=== PATIENT | male | born 1940 | race Caucasian/White ===

== ENCOUNTER 2016-12-03 22:32 | Inpatient (IN) | payer MEDICARE ==
[~2016-12-03] VITALS: Ht 165.1 cm; Wt 65.3 kg
[2016-12-03] MEDS ORDERED: MAGNESIUM HYDROXIDE 30 ML UDC PO PRN (23:00)
[2016-12-03] MEDS ORDERED: POTA10CA43 PO (23:38)
[2016-12-03] MEDS ORDERED: ATOR20TA PO (23:38)
[2016-12-03] MEDS ORDERED: ASPI325T2 PO (23:38)
[2016-12-03] MEDS ORDERED: FURO20TA4 PO (23:38)
[2016-12-03] MEDS ORDERED: [UNRECOGNIZED DRUG - CODE] SUBCUT (23:38)
[2016-12-03] MEDS ORDERED: ISOS10TA2 PO (23:38)
[2016-12-03] MEDS ORDERED: AMIO200T2 PO (23:38)
[2016-12-03] MEDS ORDERED: HYDR-4075 PO (23:38)
[2016-12-03] MEDS ORDERED: FERR-58 PO (23:38)
[2016-12-03] MEDS ORDERED: QUET50TA76 PO (23:38)
[2016-12-03] MEDS ORDERED: DIVA125C5 PO (23:38)
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
[2016-12-04 06:47] LABS: BASOPHILS % (AUTO) 0.7 % (0.0-2.0); EOSINOPHILS # (AUTO) 0.1 /CMM (0.0-0.7); EOSINOPHILS % (AUTO) 2.9 % (0.0-6.0); HEMATOCRIT 32 % (39-51); HEMOGLOBIN 10.5 g/dL (13.5-17.5); LYMPHOCYTES # (AUTO) 0.8 /CMM (0.8-4.8); LYMPHOCYTES % (AUTO) 16.7 % (20.0-44.0); MEAN CORPUSCULAR HEMOGLOBIN 29 PG (26.0-33.0); MEAN CORPUSCULAR HGB CONC 33 g/dl (31.0-36.0); MEAN CORPUSCULAR VOLUME 88 fL (80-96); MONOCYTES # (AUTO) 0.6 /CMM (0.1-1.30); NEUTROPHILS # (AUTO) 3.4 /CMM (1.8-8.9); NEUTROPHILS % (AUTO) 68.7 % (43.0-81.0); PLATELET COUNT (AUTO) 171 /CMM (150-450); RDW COEFFICIENT OF VARIATION 15.9 (11.5-15.0); RED BLOOD CELL COUNT(AUTO) 3.59 MIL/uL (4.5-6.0)
[2016-12-04 07:14] LABS: ALBUMIN 3.4 g/dL (3.4-5.0); BILIRUBIN,TOTAL 1.3 mg/dL (0.2-1.0); CALCIUM, SERUM 8.9 mg/dL (8.5-10.1); CREATININE 1.5 mg/dL (0.6-1.3); POTASSIUM 4.5 mmol/L (3.5-5.1); TOTAL PROTEIN, SERUM 7.3 g/dL (6.4-8.2)
[2016-12-04 08:45] VITALS: BP 143/74
[2016-12-04] MEDS ORDERED: ASPIRIN 325 MG TABLET PO SCH (09:00)
[2016-12-04] MEDS ORDERED: FUROSEMIDE 20 MG TABLET PO SCH (09:00)
[2016-12-04] MEDS ORDERED: DIVALPROEX SODIUM 125 MG CAP.SPRINK PO SCH (09:00)
[2016-12-04] MEDS ORDERED: POTASSIUM CHLORIDE 10 MEQ TABLET.SA PO SCH (09:00)
--- NOTE | 2016-12-04 09:39 | NUR ---
GPS/RN DR PERKINS SEEN THE PT WITH NEW ORDERS GIVEN AND CARRIED OUT
[2016-12-04] MEDS: FERROUS SULFATE (325 MG) 325 MG/TAB TABLET PO SCH ×2 (10:00→16:29)
[2016-12-04] MEDS: hydrALAZINE HCL 10 MG TABLET PO SCH ×2 (10:01→16:30)
[2016-12-04] MEDS: ISOSORBIDE DINITRATE (10MG) 10 MG TABLET PO SCH ×2 (10:01→16:30)
[2016-12-04] MEDS: AMIODARONE HCL 200 MG TABLET PO SCH ×2 (10:02→16:29)
[2016-12-04] MEDS: ASPIRIN 81 MG TAB.CHEW PO SCH ×2 (10:10→11:51)
[2016-12-04 10:40] LABS: IRON, SERUM 36 ug/dl (50-175); TOTAL IRON BINDING CAPACITY 204 ug/dl (250-450)
[2016-12-04] MEDS ORDERED: HEPARIN SODIUM, PORCINE 5000 UNITS/1 ML VIAL SQ SCH (13:00)
[2016-12-04] MEDS: DIVALPROEX SODIUM 250 MG TABLET.DR PO SCH ×2 (14:01→16:29)
[2016-12-04] MEDS: QUETIAPINE FUMARATE 25 MG TABLET PO SCH (16:29)
[2016-12-04 16:31] VITALS: BP 126/74
--- NOTE | 2016-12-04 18:24 | NUR ---
GPS/RN NO BM THROUGH THE SHIFT WILL ENDORSE TO NUTRITION MANAGER TO COLLECT SPECIMEN
[2016-12-04 20:04] VITALS: BP 102/69
[2016-12-04] MEDS: ATORVASTATIN 10 MG TABLET PO SCH (21:46)
[2016-12-04] MEDS: TEMAZEPAM 7.5 MG CAPSULE PO PRN (22:43)
[2016-12-05 06:45] LABS: BASOPHILS % (AUTO) 0.6 % (0.0-2.0); EOSINOPHILS # (AUTO) 0.2 /CMM (0.0-0.7); EOSINOPHILS % (AUTO) 4.6 % (0.0-6.0); HEMATOCRIT 33 % (39-51); HEMOGLOBIN 10.9 g/dL (13.5-17.5); LYMPHOCYTES # (AUTO) 1.2 /CMM (0.8-4.8); LYMPHOCYTES % (AUTO) 24.2 % (20.0-44.0); MEAN CORPUSCULAR HEMOGLOBIN 29 PG (26.0-33.0); MEAN CORPUSCULAR HGB CONC 33 g/dl (31.0-36.0); MEAN CORPUSCULAR VOLUME 88 fL (80-96); MONOCYTES # (AUTO) 0.5 /CMM (0.1-1.30); MONOCYTES % (AUTO) 10.8 % (2.0-12.0); NEUTROPHILS # (AUTO) 2.9 /CMM (1.8-8.9); NEUTROPHILS % (AUTO) 59.8 % (43.0-81.0); PLATELET COUNT (AUTO) 174 /CMM (150-450); RDW COEFFICIENT OF VARIATION 16.1 (11.5-15.0); RED BLOOD CELL COUNT(AUTO) 3.76 MIL/uL (4.5-6.0); WHITE BLOOD COUNT (AUTO) 4.9 K/uL (4.3-11.0)
[2016-12-05 07:11] LABS: CALCIUM, SERUM 9.2 mg/dL (8.5-10.1); CREATININE 1.7 mg/dL (0.6-1.3); POTASSIUM 4.7 mmol/L (3.5-5.1)
[2016-12-05 08:00] VITALS: BP 135/86
[2016-12-05] MEDS: ISOSORBIDE DINITRATE (10MG) 10 MG TABLET PO SCH ×2 (08:58→17:06)
[2016-12-05] MEDS: AMIODARONE HCL 200 MG TABLET PO SCH ×2 (08:59→17:07)
[2016-12-05] MEDS: hydrALAZINE HCL 10 MG TABLET PO SCH ×2 (08:59→17:07)
[2016-12-05] MEDS: ASPIRIN 81 MG TAB.CHEW PO SCH (08:59)
[2016-12-05] MEDS: QUETIAPINE FUMARATE 25 MG TABLET PO SCH ×2 (08:59→17:08)
[2016-12-05] MEDS: FERROUS SULFATE (325 MG) 325 MG/TAB TABLET PO SCH ×2 (08:59→17:07)
[2016-12-05] MEDS: DIVALPROEX SODIUM 250 MG TABLET.DR PO SCH ×2 (09:00→17:16)
--- NOTE | 2016-12-05 11:27 | NUR ---
PT C/O CONSTIPATION MOM 30 ML PO PRN GIVEN , WILL CONTINUE TO MONITOR FOR EFFECTIVENESS .
[2016-12-05 16:00] VITALS: BP 122/64
[2016-12-05] MEDS: clonazePAM 0.5 MG TABLET PO PRN (17:40)
--- NOTE | 2016-12-05 17:54 | NUR ---
GPS RN: PATIENT IS INCREASINGLY ANXIOUS, RESTLESS, HYPERVERBAL, WITH EPISODES OF, CONFUSED, HARD TO REDIRECT. ADMINISTERED CLONAZEPAM 0.5MG PO ORDERED. VS STABLE, CONTINUE TO MONITOR.
--- NOTE | 2016-12-05 18:41 | NUR ---
MOM 30 ML PO PRN EFFECTIVE / COLLECT STOOL SEND TO LAB
[2016-12-05] MEDS: ATORVASTATIN 10 MG TABLET PO SCH (21:48)
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
[2016-12-06] MEDS: MENTHOL/CETYLPYRD (CEPACOL) 1 LOZ LOZENGE PO PRN (00:52)
[2016-12-06] MEDS: clonazePAM 0.5 MG TABLET PO PRN (01:18)
--- NOTE | 2016-12-06 01:19 | NUR ---
PATIENT OBSERVED TO BE ANXIOUS, DELUSIONAL AND TALKING NON-SENSICAL STUFF THIS TIME. KLONOPIN MEDICATION GIVEN ORDERED. THERAPEUTIC COMMUNICATION APPLIED. ENCOURAGED PATIENT TO RELAX, AND VERBALIZE HIS FEELINGS AND CONCERNS THIS TIME. CLOSE MONITORING DONE. Q15 MIN CHECKS CONTINUED.
--- NOTE | 2016-12-06 07:00 | NUR ---
[id number]: NOTICE A DRY AND OLD SKIN TEAR ON RT. ARM AND PICTURE TAKEN. WOUND CONSULT ORDERED. CLEANSE WITHY NORMAL SALINE AND APPLY STIR STIRPS AND LEAVE OPEN TO AIR.
[2016-12-06 08:00] VITALS: BP 145/75
[2016-12-06] MEDS: hydrALAZINE HCL 10 MG TABLET PO SCH ×2 (08:36→17:00)
[2016-12-06] MEDS: ASPIRIN 81 MG TAB.CHEW PO SCH (08:36)
[2016-12-06] MEDS: DIVALPROEX SODIUM 250 MG TABLET.DR PO SCH ×2 (08:37→17:07)
[2016-12-06] MEDS: FERROUS SULFATE (325 MG) 325 MG/TAB TABLET PO SCH ×2 (08:37→17:06)
[2016-12-06] MEDS: ISOSORBIDE DINITRATE (10MG) 10 MG TABLET PO SCH ×2 (08:37→17:00)
[2016-12-06] MEDS: AMIODARONE HCL 200 MG TABLET PO SCH ×2 (08:37→17:00)
[2016-12-06] MEDS: QUETIAPINE FUMARATE 25 MG TABLET PO SCH ×2 (08:38→17:00)
[2016-12-06] MEDS: MAG HYDROX/AL HYDROX/SIMETH 30 ML UDC PO PRN (12:28)
--- NOTE | 2016-12-06 12:30 | NUR ---
[id number]: GAVE MAALOX FOR INDIGESTION UPON PT REQUEST AND WILL CONTINUE TO MONITOR FOR EFFECTIVENESS OF MEDICATION
[2016-12-06 16:00] VITALS: BP 90/60
--- NOTE | 2016-12-06 16:29 | NUR ---
Initial discharge plan: Pt. lives with his , Kajal Alcantara [phone] or [phone] [address] . Pt. wants to return home. SW will follow up with pt's , Kajal to confirm pt's ability to return back home. SW will follow up with MD and will form safe and proper discharge.
--- NOTE | 2016-12-06 16:41 | NUR ---
[id number]: NOTIFIED DR. PERKINS ABOUT SKIN TEAR AND NO NEW ORDERS GIVEN AT THIS TIME.
[2016-12-06 20:15] VITALS: BP 135/88
[2016-12-06] MEDS: ATORVASTATIN 10 MG TABLET PO SCH (21:42)
[2016-12-06] MEDS: TEMAZEPAM 7.5 MG CAPSULE PO PRN (22:26)
[2016-12-07] MEDS: ACETAMINOPHEN 325 MG TABLET PO PRN (04:49)
[2016-12-07 08:00] VITALS: BP 127/73
[2016-12-07] MEDS: ASPIRIN 81 MG TAB.CHEW PO SCH (08:43)
[2016-12-07] MEDS: FERROUS SULFATE (325 MG) 325 MG/TAB TABLET PO SCH ×2 (08:43→16:22)
[2016-12-07] MEDS: QUETIAPINE FUMARATE 25 MG TABLET PO SCH ×2 (08:43→16:22)
[2016-12-07] MEDS: DIVALPROEX SODIUM 250 MG TABLET.DR PO SCH ×2 (08:43→16:22)
[2016-12-07] MEDS: ISOSORBIDE DINITRATE (10MG) 10 MG TABLET PO SCH ×2 (08:44→16:21)
[2016-12-07] MEDS: hydrALAZINE HCL 10 MG TABLET PO SCH ×2 (08:44→16:21)
[2016-12-07] MEDS: AMIODARONE HCL 200 MG TABLET PO SCH ×2 (08:45→16:20)
--- NOTE | 2016-12-07 10:08 | NUR ---
[id number]: NOTIFIED DR. SEPINOZA ABOUT LATERAL TORSO HEMATOMA GETTING BIGGER. PACEMAKER INSERTION DONE BEFORE DECEMBER 01, 2016. PA FOR DR. PERKINS MADE AWARE. NO NEW ORDERS GIVEN AT THIS TIME. PT HAS NO COMPLAIN OF PAIN OR DISCOMFORT. WILL CONTINUE TO MONITOR.
[2016-12-07] MEDS: clonazePAM 0.5 MG TABLET PO PRN (10:09)
--- NOTE | 2016-12-07 10:10 | NUR ---
GPS RN: PATIENT IS INCREASINGLY ANXIOUS, RESTLESS, HYPERVERBAL, WITH EPISODES OF, CONFUSED, HARD TO REDIRECT. ADMINISTERED CLONAZEPAM 0.5MG PO ORDERED. VS STABLE, CONTINUE TO MONITOR.
--- NOTE | 2016-12-07 10:10 | NUR ---
WOUND CARE CONSULT: PT IS AMBULATORY AND CONTINENT. BRUISES AND DRY ABRASIONS NOTED. WILL SEE PRN. Addendum: 12/07/16 at 1011 by MINERVA HILL WNDNU Amended: Links added.
--- NOTE | 2016-12-07 12:00 | NUR ---
[id number]: PT SEEN BY DR. PERKINS.
--- NOTE | 2016-12-07 12:39 | NUR ---
[id number]: PT'S X-RAY DONE. PENDING RESULTS
--- NOTE | 2016-12-07 12:52 | NUR ---
RN-CO: Patient was seen and examined by Dr Duke and aware of the expanding ecchymosis on left torso.
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
[2016-12-07 15:40] LABS: APPEARANCE,URINE CLEAR (CLEAR); BILIRUBIN,URINE NEGATIVE (NEGATIVE); BLOOD, URINE NEGATIVE Ery/uL (NEGATIVE); COLOR,URINE YELLOW (YELLOW); KETONES,URINE NEGATIVE (NEGATIVE); LEUKOCYTE ESTERASE ,URINE NEGATIVE (NEGATIVE); NITRITE, URINE NEGATIVE (NEGATIVE); PH,URINE 7.5 (5.0-8.0); PROTEIN,URINE NEGATIVE (NEGATIVE); UGLUCOSE NEGATIVE (NEGATIVE); UROBILINOGEN,URINE 0.2 EU/dL (0.2)
[2016-12-07 15:55] LABS: CREATININE, URINE 31.1 MG/DL (30.0-125.0); URINE TOTAL PROTEIN 14.1 mg/dL (0-11.9)
[2016-12-07 16:00] VITALS: BP 123/76
[2016-12-07 16:21] LABS: EOSINOPHIL,URINE None Seen
--- NOTE | 2016-12-07 19:21 | NUR ---
GPS RN NOTE, RECEIVED PATIENT AWAKE AND IN BED, NO S/S OR COMPLAINTS OF PAIN AT THIS TIME. PATIENT IS DISPLAYING NO S/S OF APPARENT DISTRESS AT THIS TIME. PATIENT HAS A ONE TO ONE SITTER FOR BEING AGGRESSIVE WITH STAFF. PATIENT BREATHING IS UNLABORED WITH EQUAL RISE AND FALL OF THE CHEST. PATIENT IS ALERT AND ORIENTED X 2 ON ROOM AIR WITH A SPO2 95%. PATIENT COMPLIANT WITH MEDICATIONS, ANXIOUS, DELUSIONAL, COOPERATIVE, CONFUSED AT TIMES, AND NEEDS REORIENTATION. PATIENT DENIES SUICIDE AND HOMICIDAL IDEATIONS AT THIS TIME. PATIENT ASSISTED WITH TURNING AND REPOSITIONING Q2HR AND PRN FOR COMFORT AND CIRCULATION. PATIENT HAS NO NEEDS AT THIS TIME. PATIENT EDUCATED ON THE USE OF THE CALL FLORES. PATIENT BED SIDE RAILS UP X2 FOR SAFETY, BED IS LOCKED AND LOW WILL CONTINUE TO MONITOR AND MAINTAIN SAFETY.
[2016-12-07 20:48] VITALS: BP 128/78
[2016-12-07] MEDS: ATORVASTATIN 10 MG TABLET PO SCH (21:02)
[2016-12-08] MEDS: TEMAZEPAM 7.5 MG CAPSULE PO PRN (00:17)
--- NOTE | 2016-12-08 00:17 | NUR ---
GPS RN NOTE, PATIENT HAS A COMPLAINT OF NOT BEING ABLE TO SLEEP AND WOULD LIKE A SLEEPING AID AT THIS TIME. PATIENT VITAL SIGNS ARE STABLE. GAVE RESTORIL 7.5MG PO HS ORDERED. WILL REASSESS FOR INSOMNIA AND I WILL CONTINUE TO MONITOR THIS PATIENT.
[2016-12-08] MEDS: ACETAMINOPHEN 325 MG TABLET PO PRN ×3 (03:22→21:29)
--- NOTE | 2016-12-08 03:24 | NUR ---
GPS RN NOTE, PATIENT HAS A COMPLAINT OF LOWER BACK PAIN AT 3 OUT 10 ON THE PAIN SCALE AND WOULD LIKE MEDICATION AT THIS TIME. PATIENT VITAL SIGNS ARE STABLE. GAVE TYLENOL 650MG PO Q6HR PRN ORDERED. WILL REASSESS PAIN AND I WILL CONTINUE TO MONITOR THIS PATIENT.
[2016-12-08 08:00] VITALS: BP 117/76
[2016-12-08] MEDS: DIVALPROEX SODIUM 250 MG TABLET.DR PO SCH ×3 (09:00→17:00)
--- NOTE | 2016-12-08 09:45 | NUR ---
GPS/RN PT REFUSED DEPAKOTE FOR 0900. OFFERED X3. DR DE SOUZA MADE AWARE.
[2016-12-08] MEDS: ASPIRIN 81 MG TAB.CHEW PO SCH (09:53)
[2016-12-08] MEDS: QUETIAPINE FUMARATE 25 MG TABLET PO SCH ×2 (09:53→17:00)
[2016-12-08] MEDS: FERROUS SULFATE (325 MG) 325 MG/TAB TABLET PO SCH ×2 (09:53→17:00)
[2016-12-08] MEDS: ISOSORBIDE DINITRATE (10MG) 10 MG TABLET PO SCH ×2 (09:55→17:00)
[2016-12-08] MEDS: AMIODARONE HCL 200 MG TABLET PO SCH ×2 (09:55→17:00)
[2016-12-08] MEDS: hydrALAZINE HCL 10 MG TABLET PO SCH ×2 (10:07→17:00)
--- NOTE | 2016-12-08 11:00 | NUR ---
GPS/RN PT REFUSED BLOOD DRAW.
--- NOTE | 2016-12-08 13:13 | NUR ---
GPS/RN PT REFUSED DEPAKOTE FOR 1300. OFFERED X3. DR DE SOUZA IS AWARE.
--- NOTE | 2016-12-08 15:01 | NUR ---
NISHANT contacted Matt from [facility] [address] [facility] [address] who got pt's information and said will have appropriate department to contact the SW. NISHANT then faxed paperwork in order to transfer pt. to [facility] [phone] phone [phone] and followed up and spoke with Radha who said that they have no bed availability and have had pts. waiting in their ER for days. NISHANT asked about [facility] [phone], and per Radha, it is only outpatient.
[2016-12-08 16:00] VITALS: BP 95/57
--- NOTE | 2016-12-08 17:07 | NUR ---
GPS/RN PT REFUSED 1700 MEDS OFFERED X3. PT REQUESTED TYLENOL ONLY.PT IS PARANOID, FIXATED ON LEAVING " THIS PLACE.
--- NOTE | 2016-12-08 18:09 | NUR ---
GPS/RN GRANDIOSE/PARANOID IDEATION. PT STATES THAT HE WILL BECOME INVISIBLE AND ESCAPE FROM THE UNIT. REFUSED MEDS STILL.
[2016-12-08 20:00] VITALS: BP 113/70
[2016-12-08] MEDS: ATORVASTATIN 10 MG TABLET PO SCH (21:29)
[2016-12-09] MEDS: clonazePAM 0.5 MG TABLET PO PRN (00:51)
[2016-12-09 08:00] VITALS: BP 136/79
--- NOTE | 2016-12-09 08:02 | NUR ---
RN-CO: Patient refused Nicotine Patch.
[2016-12-09] MEDS: hydrALAZINE HCL 10 MG TABLET PO SCH ×3 (08:26→16:36)
[2016-12-09] MEDS: ASPIRIN 81 MG TAB.CHEW PO SCH (08:26)
[2016-12-09] MEDS: DIVALPROEX SODIUM 250 MG TABLET.DR PO SCH ×4 (08:27→16:35)
[2016-12-09] MEDS: QUETIAPINE FUMARATE 25 MG TABLET PO SCH ×3 (08:27→16:35)
[2016-12-09] MEDS: FERROUS SULFATE (325 MG) 325 MG/TAB TABLET PO SCH ×3 (08:27→16:37)
[2016-12-09] MEDS: ISOSORBIDE DINITRATE (10MG) 10 MG TABLET PO SCH ×2 (08:27→16:37)
[2016-12-09] MEDS: AMIODARONE HCL 200 MG TABLET PO SCH ×3 (08:29→16:36)
--- NOTE | 2016-12-09 09:10 | NUR ---
GPS/RN PT REFUSED 0900 MEDS OFFERED X3. PT REQUESTED ISORDIL 10MG ONLY.PT IS PARANOID HYPERVERBAL, EXPLAINED OF BENEFITS OF MEDS STILL REFUSED
--- NOTE | 2016-12-09 14:13 | NUR ---
NISHANT spoke with Kajal Alcantara [phone] or [phone] who was notified of no bed availability but per Kajal, pt's psychiatrist Monique Connell [phone] ext [phone] just told her that they would be able to transfer the patient. SW called and left a voicemail for the psychiatrist to find out more. Dr. Connell called back and left a voicemail with two numbers for NISHANT to call to confirm. One for the block and case maker [phone] and one for Psych emergency [phone] ext [phone]. SW called both numbers, but unable to get a hold of anyone and wasn't able to leave a voicemail. NISHANT called back the transfer unit number [phone] and left a voicemail regarding the possible transfer. Will follow up.
[2016-12-09 16:00] VITALS: BP 127/81
--- NOTE | 2016-12-09 17:50 | NUR ---
GPS/RN PT REFUSED 1700 MEDS OFFERED X3. PT TOOK SEROQUEL / DEPAKOTE ONLY.PT IS PARANOID HYPERVERBAL, EXPLAINED OF BENEFITS OF MEDS STILL REFUSED
--- NOTE | 2016-12-09 17:58 | NUR ---
GPS/RN PT REFUSED LABS, OFFERED X3.PT IS PARANOID HYPERVERBAL, EXPLAINED OF BENEFITS OF LABS STILL REFUSED PT. STATED I DON'T NEEDS ANY LABS
--- NOTE | 2016-12-09 19:10 | NUR ---
GPS RN NOTE, RECEIVED PATIENT AWAKE AND IN BED, NO S/S OR COMPLAINTS OF PAIN AT THIS TIME. PATIENT IS DISPLAYING NO S/S OF APPARENT DISTRESS AT THIS TIME. PATIENT HAS A ONE TO ONE SITTER FOR BEING AGGRESSIVE WITH STAFF. PATIENT BREATHING IS UNLABORED WITH EQUAL RISE AND FALL OF THE CHEST. PATIENT IS ALERT AND ORIENTED X 2 ON ROOM AIR WITH A SPO2 98%. PATIENT COMPLIANT WITH MEDICATIONS, ANXIOUS, DELUSIONAL, COOPERATIVE, CONFUSED AT TIMES, AND NEEDS REORIENTATION. PATIENT DENIES SUICIDE AND HOMICIDAL IDEATIONS AT THIS TIME. PATIENT ASSISTED WITH TURNING AND REPOSITIONING Q2HR AND PRN FOR COMFORT AND CIRCULATION. PATIENT HAS NO NEEDS AT THIS TIME. PATIENT EDUCATED ON THE USE OF THE CALL FLORES. PATIENT BED SIDE RAILS UP X2 FOR SAFETY, BED IS LOCKED AND LOW WILL CONTINUE TO MONITOR AND MAINTAIN SAFETY.
[2016-12-09 20:00] VITALS: BP 111/65
[2016-12-09] MEDS: ATORVASTATIN 10 MG TABLET PO SCH (21:04)
[2016-12-09 21:13] LABS: APPEARANCE,URINE CLEAR (CLEAR); BILIRUBIN,URINE NEGATIVE (NEGATIVE); BLOOD, URINE NEGATIVE Ery/uL (NEGATIVE); COLOR,URINE YELLOW (YELLOW); KETONES,URINE NEGATIVE (NEGATIVE); LEUKOCYTE ESTERASE ,URINE NEGATIVE (NEGATIVE); NITRITE, URINE NEGATIVE (NEGATIVE); PROTEIN,URINE NEGATIVE (NEGATIVE); UGLUCOSE NEGATIVE (NEGATIVE)
[2016-12-09 21:20] LABS: CREATININE, URINE 28.6 MG/DL (30.0-125.0); URINE TOTAL PROTEIN 12.3 mg/dL (0-11.9)
[2016-12-09 21:21] LABS: ADD URINE CULTURE NO; BACTERIA,URINE None seen /HPF (None Seen); RBC,URINE 0-2 /HPF (0-2); SQUAMOUS EPITHELIAL CELL,UR Rare /HPF (None Seen); WBC,URINE 0-2 /HPF (0-3)
[2016-12-09 21:32] LABS: EOSINOPHIL,URINE None Seen
[2016-12-09] MEDS: ACETAMINOPHEN 325 MG TABLET PO PRN (21:35)
--- NOTE | 2016-12-09 21:35 | NUR ---
GPS RN NOTE, PATIENT HAS A COMPLAINT OF LOWER BACK PAIN AT 3 OUT 10 ON THE PAIN SCALE AND WOULD LIKE MEDICATION AT THIS TIME. PATIENT VITAL SIGNS ARE STABLE. GAVE TYLENOL 650 MG PO Q6HR PRN ORDERED. WILL REASSESS FOR PAIN AND I WILL CONTINUE TO MONITOR THIS PATIENT.
[2016-12-10] MEDS: TEMAZEPAM 7.5 MG CAPSULE PO PRN (01:51)
[2016-12-10] MEDS: ACETAMINOPHEN 325 MG TABLET PO PRN (04:40)
[2016-12-10 08:00] VITALS: BP 140/72
[2016-12-10] MEDS: ISOSORBIDE DINITRATE (10MG) 10 MG TABLET PO SCH ×3 (09:00→17:00)
[2016-12-10] MEDS: AMIODARONE HCL 200 MG TABLET PO SCH ×3 (09:00→17:00)
[2016-12-10] MEDS: FERROUS SULFATE (325 MG) 325 MG/TAB TABLET PO SCH ×3 (09:00→17:00)
[2016-12-10] MEDS: hydrALAZINE HCL 10 MG TABLET PO SCH ×3 (09:00→17:00)
[2016-12-10] MEDS: DIVALPROEX SODIUM 250 MG TABLET.DR PO SCH ×3 (10:10→17:57)
[2016-12-10] MEDS: ASPIRIN 81 MG TAB.CHEW PO SCH (10:10)
[2016-12-10] MEDS: QUETIAPINE FUMARATE 25 MG TABLET PO SCH ×3 (10:11→21:15)
[2016-12-10 16:00] VITALS: BP 110/69
[2016-12-10 20:00] VITALS: BP 120/67
[2016-12-10] MEDS: ATORVASTATIN 10 MG TABLET PO SCH (21:15)
[2016-12-11 08:00] VITALS: BP 121/82
[2016-12-11] MEDS: hydrALAZINE HCL 10 MG TABLET PO SCH ×2 (09:00→16:43)
[2016-12-11] MEDS: ISOSORBIDE DINITRATE (10MG) 10 MG TABLET PO SCH ×2 (09:00→16:46)
[2016-12-11] MEDS ORDERED: diphenhydrAMINE HCL ELIX 25 MG/10 ML UDC PO PRN (09:00)
[2016-12-11] MEDS: FERROUS SULFATE (325 MG) 325 MG/TAB TABLET PO SCH ×2 (09:00→16:46)
[2016-12-11] MEDS: AMIODARONE HCL 200 MG TABLET PO SCH ×2 (09:05→16:45)
[2016-12-11] MEDS: QUETIAPINE FUMARATE 25 MG TABLET PO SCH ×3 (09:06→22:00)
[2016-12-11] MEDS: DIVALPROEX SODIUM 250 MG TABLET.DR PO SCH ×4 (09:06→16:46)
[2016-12-11] MEDS: ASPIRIN 81 MG TAB.CHEW PO SCH (09:06)
[2016-12-11 15:47] VITALS: BP 122/72
--- NOTE | 2016-12-11 16:47 | NUR ---
GPS RN NOTE: PATIENT IN THE ROOM REFUSED ALL 1700 MEDICATIONS STATED: IM NOT TAKING ANY MEDICATIONS ,LEAVE " EXPLAIN RISK AND BENEFITS PATIENT CONTINUE REFUSING, PT REFUSED LABS WILL CONTINUE MONITORING MD AWARE NO NEW ORDERS
[2016-12-11 19:54] VITALS: BP 129/69
[2016-12-11] MEDS: ATORVASTATIN 10 MG TABLET PO SCH (21:59)
[2016-12-12] MEDS: ACETAMINOPHEN 325 MG TABLET PO PRN (00:53)
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
[2016-12-12 08:00] VITALS: BP 129/77
[2016-12-12] MEDS: DIVALPROEX SODIUM 250 MG TABLET.DR PO SCH ×4 (09:00→17:25)
[2016-12-12] MEDS: ASPIRIN 81 MG TAB.CHEW PO SCH (09:00)
[2016-12-12] MEDS: AMIODARONE HCL 200 MG TABLET PO SCH ×3 (09:00→17:26)
[2016-12-12] MEDS: QUETIAPINE FUMARATE 25 MG TABLET PO SCH ×2 (09:00→20:40)
[2016-12-12] MEDS: ISOSORBIDE DINITRATE (10MG) 10 MG TABLET PO SCH ×3 (09:00→17:28)
[2016-12-12] MEDS: hydrALAZINE HCL 10 MG TABLET PO SCH ×3 (09:00→17:26)
[2016-12-12] MEDS: FERROUS SULFATE (325 MG) 325 MG/TAB TABLET PO SCH ×3 (09:00→17:26)
--- NOTE | 2016-12-12 11:13 | NUR ---
NISHANT spoke with Monique Connell [phone] ext [phone] and she provided some more contacts that may be able to confirm whether pt. can or cannot be transferred. NISHANT called the transfer business supervisor [phone] and he confirmed that they still do not have a bed available, and in fact, they are trying to send 3 of their patients out to a different hospital due to no bed availability. NISHANT left a voicemail for Kajal Alcantara [phone] or [phone] informing her of the updates and asking to call back to discuss discharge other options.
--- NOTE | 2016-12-12 13:24 | NUR ---
WOUND CARE CONSULT CALLED TO ASSESS RIGHT ARM/ELBOW SKIN TEAR. SEE TODAY'S SKIN ASSESSMENT IN [facility] ALONG WITH RECOMMENDATIONS DISCUSSED WITH NURSING STAFF. IN AGREEMENT WITH PLAN OF CARE. Addendum: 12/12/16 at 1325 by MARY JO PERRIN WNDNU Amended: Links added.
[2016-12-12] MEDS: NEOMY SULF/BACITRAC ZN/POLY 15 GM TUBE TP SCH (13:30)
[2016-12-12 16:00] VITALS: BP 134/80
--- NOTE | 2016-12-12 16:23 | NUR ---
Disregard psychosocial assessment entered 12/12/16 by Nathan Hare. Addendum: 12/12/16 at 1626 by NATHAN HARE SW Amended: Links added.
--- NOTE | 2016-12-12 17:31 | NUR ---
PATIENT REFUSED 0900, 1300, AND 1700 MEDICATION PRESCRIBED, PATIENT STATE" I NEED MY VA DOCTOR, LET MY DOCTOR TALK TO ME", DR DE SOUZA AWARE OF, CONTINUED MONITORING.
[2016-12-12] MEDS: MAG HYDROX/AL HYDROX/SIMETH 30 ML UDC PO PRN (18:15)
--- NOTE | 2016-12-12 18:15 | NUR ---
ADMINISTERED MAALOX 30 MG/ML PO PRN FOR STOMACHACHE, CONTINUED MONITORING.
[2016-12-12 19:40] VITALS: BP 120/81
[2016-12-12] MEDS: ATORVASTATIN 10 MG TABLET PO SCH (20:40)
[2016-12-13] MEDS: ACETAMINOPHEN 325 MG TABLET PO PRN (04:14)
[2016-12-13 08:00] VITALS: BP 143/90
[2016-12-13] MEDS: hydrALAZINE HCL 10 MG TABLET PO SCH ×2 (08:58→17:00)
[2016-12-13] MEDS: ASPIRIN 81 MG TAB.CHEW PO SCH (08:59)
[2016-12-13] MEDS: AMIODARONE HCL 200 MG TABLET PO SCH ×2 (08:59→17:00)
[2016-12-13] MEDS: FERROUS SULFATE (325 MG) 325 MG/TAB TABLET PO SCH ×2 (09:00→17:00)
[2016-12-13] MEDS: NEOMY SULF/BACITRAC ZN/POLY 15 GM TUBE TP SCH (09:00)
[2016-12-13] MEDS: QUETIAPINE FUMARATE 25 MG TABLET PO SCH ×2 (09:00→21:08)
[2016-12-13] MEDS: DIVALPROEX SODIUM 250 MG TABLET.DR PO SCH ×3 (09:00→21:08)
[2016-12-13] MEDS: ISOSORBIDE DINITRATE (10MG) 10 MG TABLET PO SCH ×2 (09:00→17:00)
--- NOTE | 2016-12-13 09:08 | NUR ---
GPS/RN PT REFUSED 0900 AM ALL MEDS OFFERED X3.PT IS PARANOID HYPERVERBAL, EXPLAINED OF BENEFITS OF MEDS pt. STILL REFUSED
--- NOTE | 2016-12-13 09:09 | NUR ---
[id number]: SPOKEN TO PHARMACY AND DEPAPOTE 250 MG PO TID HS BEEN DISCONTINUE BUT IS STILL SHOWING UP IN THE EMAR AND ONLY TO ADMINISTER 250 MG Q12 HOUR.
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
--- NOTE | 2016-12-13 11:30 | NUR ---
Pt. was referred to [facility] [address] [place] [address] . Will follow up
[2016-12-13 15:21] VITALS: BP 134/86
--- NOTE | 2016-12-13 17:10 | NUR ---
GPS/RN PT REFUSED 1700 ALL MEDS OFFERED X3.PT IS PARANOID HYPERVERBAL, EXPLAINED OF BENEFITS OF MEDS pt. STILL REFUSED
[2016-12-13 20:16] VITALS: BP 153/75
[2016-12-13] MEDS: ATORVASTATIN 10 MG TABLET PO SCH (21:08)
[2016-12-14] MEDS: clonazePAM 0.5 MG TABLET PO PRN ×2 (07:10→15:20)
[2016-12-14 08:00] VITALS: BP 147/79
[2016-12-14] MEDS: hydrALAZINE HCL 10 MG TABLET PO SCH ×2 (09:00→17:22)
[2016-12-14] MEDS: AMIODARONE HCL 200 MG TABLET PO SCH ×2 (09:00→17:22)
[2016-12-14] MEDS: ASPIRIN 81 MG TAB.CHEW PO SCH (09:00)
[2016-12-14] MEDS: ISOSORBIDE DINITRATE (10MG) 10 MG TABLET PO SCH ×2 (09:00→17:21)
[2016-12-14] MEDS: FERROUS SULFATE (325 MG) 325 MG/TAB TABLET PO SCH ×2 (09:00→17:22)
[2016-12-14] MEDS: DIVALPROEX SODIUM 250 MG TABLET.DR PO SCH ×2 (09:00→21:34)
[2016-12-14] MEDS: QUETIAPINE FUMARATE 25 MG TABLET PO SCH ×2 (09:00→21:34)
[2016-12-14] MEDS: NEOMY SULF/BACITRAC ZN/POLY 15 GM TUBE TP SCH (11:00)
--- NOTE | 2016-12-14 15:21 | NUR ---
GPS/RN PATIENT AGITATED, ANXIOUS, THROWING WATER IN HALLWAY X 2, NON REDIRECTABLE, ADMINISTERED KLONOPIN DIRECTED, WILL CONTINUE TO MONITOR Q 15 MIN FOR SAFETY AND BEHAVIOR.
[2016-12-14 16:00] VITALS: BP 138/77
[2016-12-14 20:48] VITALS: BP 114/83
[2016-12-14] MEDS: ATORVASTATIN 10 MG TABLET PO SCH (21:34)
[2016-12-15] MEDS: ACETAMINOPHEN 325 MG TABLET PO PRN (02:14)
[2016-12-15] MEDS: FERROUS SULFATE (325 MG) 325 MG/TAB TABLET PO SCH ×2 (08:06→17:33)
[2016-12-15] MEDS: DIVALPROEX SODIUM 250 MG TABLET.DR PO SCH (08:07)
[2016-12-15] MEDS: hydrALAZINE HCL 10 MG TABLET PO SCH ×2 (08:07→17:34)
[2016-12-15] MEDS: ASPIRIN 81 MG TAB.CHEW PO SCH (08:07)
[2016-12-15] MEDS: ISOSORBIDE DINITRATE (10MG) 10 MG TABLET PO SCH ×2 (08:07→17:33)
[2016-12-15] MEDS: QUETIAPINE FUMARATE 25 MG TABLET PO SCH (08:08)
[2016-12-15] MEDS: NEOMY SULF/BACITRAC ZN/POLY 15 GM TUBE TP SCH (08:08)
[2016-12-15] MEDS: AMIODARONE HCL 200 MG TABLET PO SCH ×2 (08:08→17:34)
[2016-12-15 08:16] VITALS: BP 126/81
--- NOTE | 2016-12-15 11:44 | NUR ---
Christina (BARRY) from [facility] [id number] [place] [address] came to assess the patient. They will review the case and confirm whether pt. can be admitted or not.
[2016-12-15 15:51] VITALS: BP 110/68
--- NOTE | 2016-12-15 19:16 | NUR ---
GPS/RN NOTE: PATIENT UP IN THE DINING AREA WITH OTHER PATIENTS. CALM, NO APPARENT DISTRESS NOTED.
[2016-12-15 20:00] VITALS: BP 103/64
[2016-12-15] MEDS ORDERED: OLANZAPINE 10 MG VIAL IM PRN (22:00)
[2016-12-15] MEDS ORDERED: OLANZAPINE 5 MG/TAB.RAPDIS PO SCH (22:00)
[2016-12-15] MEDS: DIVALPROEX SODIUM 125 MG CAP.SPRINK PO SCH (23:37)
[2016-12-15] MEDS: ATORVASTATIN 10 MG TABLET PO SCH (23:38)
--- NOTE | 2016-12-16 05:40 | NUR ---
GPS/RN NOTE: PATIENT C/O ACHY BACK PAIN, TYLENOL 650 MG TAB PO GIVEN. PATIENT IS ALSO C/O ITCHING ON THE PACEMAKER SITE, REDNESS NOTED. PHOTO TAKEN. WILL ENDORSE TO DAY RN FOR FOLLOW UP AND REFER TO MD TODAY.
[2016-12-16] MEDS: ACETAMINOPHEN 325 MG TABLET PO PRN (05:44)
[2016-12-16 08:05] VITALS: BP 124/73
[2016-12-16] MEDS: ISOSORBIDE DINITRATE (10MG) 10 MG TABLET PO SCH ×2 (09:00→17:00)
[2016-12-16] MEDS: NEOMY SULF/BACITRAC ZN/POLY 15 GM TUBE TP SCH (09:00)
[2016-12-16] MEDS: hydrALAZINE HCL 10 MG TABLET PO SCH ×2 (09:00→17:00)
[2016-12-16] MEDS: DIVALPROEX SODIUM 250 MG TABLET.DR PO SCH (09:00)
[2016-12-16] MEDS: ASPIRIN 81 MG TAB.CHEW PO SCH (09:00)
[2016-12-16] MEDS: FERROUS SULFATE (325 MG) 325 MG/TAB TABLET PO SCH ×2 (09:00→17:00)
[2016-12-16] MEDS: AMIODARONE HCL 200 MG TABLET PO SCH ×2 (09:00→17:00)
--- NOTE | 2016-12-16 09:53 | NUR ---
NISHANT faxed a referral to [facility] [address] [place] [address] . Will follow up
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
--- NOTE | 2016-12-16 11:40 | NUR ---
SW spoke with Kajal Alcantara [phone], pt's , who was notified of pt's possible discharge on Monday to [address] [address] as per Almita from the facility pt. is accepted.
[2016-12-16 15:37] VITALS: BP 121/70
[2016-12-16] MEDS ORDERED: OLANZAPINE 10 MG VIAL IM PRN (16:00)
--- NOTE | 2016-12-16 18:40 | NUR ---
GPS/RN pt refufsed po meds for 0900 and 1700 today, offered x3
--- NOTE | 2016-12-16 19:48 | NUR ---
GPS/RN NOTE: PATIENT IS SITTING AT THE DINING AREA, AWAKE, ALERT, CONFUSED. NO APPARENT DISTRESS NOTED.
[2016-12-16 20:00] VITALS: BP_SYST 134; BP_SYST 147; BP_DIAS 71; BP_DIAS 73
[2016-12-16] MEDS: ATORVASTATIN 10 MG TABLET PO SCH ×2 (21:16→21:35)
[2016-12-16] MEDS: DIVALPROEX SODIUM 125 MG CAP.SPRINK PO SCH ×2 (21:16→21:35)
[2016-12-16] MEDS: OLANZAPINE 5 MG/TAB.RAPDIS PO SCH ×2 (21:24→21:35)
[2016-12-17 08:00] VITALS: BP 129/76
[2016-12-17] MEDS: DIVALPROEX SODIUM 250 MG TABLET.DR PO SCH (08:37)
[2016-12-17] MEDS: hydrALAZINE HCL 10 MG TABLET PO SCH ×2 (08:37→17:00)
[2016-12-17] MEDS: AMIODARONE HCL 200 MG TABLET PO SCH ×2 (08:37→17:00)
[2016-12-17] MEDS: ASPIRIN 81 MG TAB.CHEW PO SCH (08:37)
[2016-12-17] MEDS: FERROUS SULFATE (325 MG) 325 MG/TAB TABLET PO SCH ×2 (08:38→17:00)
[2016-12-17] MEDS: ISOSORBIDE DINITRATE (10MG) 10 MG TABLET PO SCH ×2 (08:38→17:00)
[2016-12-17] MEDS: NEOMY SULF/BACITRAC ZN/POLY 15 GM TUBE TP SCH (08:40)
[2016-12-17] MEDS: OLANZAPINE 5 MG/TAB.RAPDIS PO SCH ×2 (14:00→22:03)
--- NOTE | 2016-12-17 15:35 | NUR ---
GPS/RN PT REFUSED ZYPREXA 5MG PO. ZYPREXA IM GIVEN ORDERED BY DR. KHOURY.
[2016-12-17 16:00] VITALS: BP 118/70
[2016-12-17 20:05] VITALS: BP 121/68
--- NOTE | 2016-12-17 20:12 | NUR ---
GPS/RN NOTE: PATIENT UP AND ABOUT IN THE UNIT, CONFUSED AND DELUSIONAL. NO APPARENT DISTRESS NOTED.
[2016-12-17] MEDS ORDERED: OLANZAPINE 10 MG VIAL IM PRN (21:00)
[2016-12-17] MEDS: ATORVASTATIN 10 MG TABLET PO SCH (22:03)
[2016-12-17] MEDS: DIVALPROEX SODIUM 125 MG CAP.SPRINK PO SCH (22:04)
[2016-12-18 08:00] VITALS: BP 134/85
[2016-12-18] MEDS: ASPIRIN 81 MG TAB.CHEW PO SCH (08:53)
[2016-12-18] MEDS: OLANZAPINE 5 MG/TAB.RAPDIS PO SCH ×2 (08:54→21:31)
[2016-12-18] MEDS: FERROUS SULFATE (325 MG) 325 MG/TAB TABLET PO SCH ×2 (08:56→17:00)
[2016-12-18] MEDS: AMIODARONE HCL 200 MG TABLET PO SCH ×2 (08:56→17:00)
[2016-12-18] MEDS: ISOSORBIDE DINITRATE (10MG) 10 MG TABLET PO SCH ×2 (08:58→17:00)
[2016-12-18] MEDS: DIVALPROEX SODIUM 250 MG TABLET.DR PO SCH (08:59)
[2016-12-18] MEDS: hydrALAZINE HCL 10 MG TABLET PO SCH ×2 (09:00→17:00)
[2016-12-18] MEDS: NEOMY SULF/BACITRAC ZN/POLY 15 GM TUBE TP SCH (12:23)
[2016-12-18] MEDS: MENTHOL/CETYLPYRD (CEPACOL) 1 LOZ LOZENGE PO PRN ×2 (15:42→23:46)
--- NOTE | 2016-12-18 15:42 | NUR ---
ADMINISTERED CEPACOL LOZENGE FOR SORE THROAT PER PATIENT REQUEST, CONTINUED MONITORING.
[2016-12-18 16:22] VITALS: BP 129/72
[2016-12-18 19:54] VITALS: BP 129/80
[2016-12-18] MEDS: ATORVASTATIN 10 MG TABLET PO SCH (21:31)
[2016-12-18] MEDS: DIVALPROEX SODIUM 125 MG CAP.SPRINK PO SCH (21:40)
--- NOTE | 2016-12-18 22:00 | NUR ---
GPS RN NOTES: PATIENT IN BED, NOTED TO BE HYPERVERBAL. MEDICATION HAD JUST BEEN ADMINISTERED REFLECTED IN EMAR. SKIN ASSESSMENT PICTURES DONE, PLACED IN CHART. DRESSING ON WOUNDS IN BOTH ARMS REDRESSED NEEDED. CLEANSED WITH NORMAL SALINE, PAT DRIED AND DRESSED ASEPTICALLY. INSTRUCTED PATIENT NOT TO TAKE THE DRESSING OUT. PATIENT THEN AGREED. WILL CONTINUE TO MONITOR.
--- NOTE | 2016-12-18 23:30 | NUR ---
GPS RN NOTES: PATIENT IN THE ROOM REQUESTED FOR CEPACOL LOZENGES. GIVEN PRN MEDICATION-CEPACOL ORDERED. WILL CONTINUE TO MONITOR.
--- NOTE | 2016-12-19 02:45 | NUR ---
GPS RN NOTES: PATIENT IN THE ROOM, ANXIOUS, DELUSIONAL AND HYPERVERBAL THIS TIME. PATIENT TOOK THE NEW DRESSING PLACED ON BOTH ARMS. LIMIT SETTING DONE. REASSURED PATIENT THAT HE WILL BE HELPED WHEN HE NEEDS IT. OFFERED KLONOPIN MEDICATION- PATIENT REQUESTED FOR IT. GIVEN KLONOPIN 0.5 MG PO ORDERED. WILL CONTINUE TO MONITOR PATIENT'S MOOD AND BEHAVIOR.
[2016-12-19] MEDS: clonazePAM 0.5 MG TABLET PO PRN (02:52)
[2016-12-19 08:00] VITALS: BP 140/77
[2016-12-19] MEDS: OLANZAPINE 5 MG/TAB.RAPDIS PO SCH (08:44)
[2016-12-19] MEDS: ASPIRIN 81 MG TAB.CHEW PO SCH (08:44)
[2016-12-19] MEDS: hydrALAZINE HCL 10 MG TABLET PO SCH (08:44)
[2016-12-19] MEDS: DIVALPROEX SODIUM 250 MG TABLET.DR PO SCH (08:44)
[2016-12-19 08:45] VITALS: BP 140/77
[2016-12-19] MEDS: AMIODARONE HCL 200 MG TABLET PO SCH (08:45)
[2016-12-19] MEDS: FERROUS SULFATE (325 MG) 325 MG/TAB TABLET PO SCH ×2 (08:45→08:49)
[2016-12-19] MEDS: ISOSORBIDE DINITRATE (10MG) 10 MG TABLET PO SCH (08:45)
[2016-12-19] MEDS: NEOMY SULF/BACITRAC ZN/POLY 15 GM TUBE TP SCH (08:49)
[2016-12-19 10:27] LABS: BASOPHILS % (AUTO) 1.1 % (0.0-2.0); EOSINOPHILS # (AUTO) 0.2 /CMM (0.0-0.7); EOSINOPHILS % (AUTO) 4.8 % (0.0-6.0); HEMATOCRIT 30 % (39-51); HEMOGLOBIN 9.8 g/dL (13.5-17.5); LYMPHOCYTES # (AUTO) 0.8 /CMM (0.8-4.8); LYMPHOCYTES % (AUTO) 19.9 % (20.0-44.0); MEAN CORPUSCULAR HEMOGLOBIN 29 PG (26.0-33.0); MEAN CORPUSCULAR HGB CONC 33 g/dl (31.0-36.0); MEAN CORPUSCULAR VOLUME 88 fL (80-96); MONOCYTES # (AUTO) 0.4 /CMM (0.1-1.30); MONOCYTES % (AUTO) 10.6 % (2.0-12.0); NEUTROPHILS # (AUTO) 2.4 /CMM (1.8-8.9); NEUTROPHILS % (AUTO) 63.6 % (43.0-81.0); PLATELET COUNT (AUTO) 153 /CMM (150-450); RDW COEFFICIENT OF VARIATION 16.2 (11.5-15.0); RED BLOOD CELL COUNT(AUTO) 3.37 MIL/uL (4.5-6.0); WHITE BLOOD COUNT (AUTO) 3.8 K/uL (4.3-11.0)
[2016-12-19 10:36] LABS: CALCIUM, SERUM 8.8 mg/dL (8.5-10.1); CREATININE 1.5 mg/dL (0.6-1.3); POTASSIUM 4.8 mmol/L (3.5-5.1)
--- NOTE | 2016-12-19 12:55 | NUR ---
DISCHARGE NOTES/ PATIENT A/O X3, MED COMPLIANT, V/S STABLE, AMBULATORY SELF CARE, V/S STABLE, NO C/O PAIN, MEDICALLY STABLE. PATIENT DENIED SI/HI/AVH AT THIS TIME. MED RECONCILIATION, AND DISCHARGE ORDERS REVIEWED AND EXPLAINED TO. REPORT GIVEN [facility] ELOY ARMANDO. RN VERBALIZED UNDERSTANDING. BELONGING RETURNED BACK TO THE PATIENT PATIENT MEDICAL EQUIPMENT TECHNICIAN BY AMBULANCE. PATIENT FAMILY AWARE OF.
--- NOTE | 2016-12-19 16:37 | NUR ---
Discharge note: Pt was discharged to [facility] [address] [place] [address] . Kajal Alcantara [phone], pt's , was notified of pt's discharge. Pt. was calm and cooperative, and excited about the discharge. Pt. denied having suicidal/homicidal ideations and hallucinations. All discharge paperwork has been signed and report has been given to the accepting facility.
== END 2016-12-19 12:55 | DRG 885 ==
LOC: GPS 22:32
PROVIDERS: ADMIT Psychiatry & Neurology Psychiatry; ATTEND Internal Medicine
DX: F31.60 Bipolar disorder, current episode mixed, unspecified (principal); N18.3 Chronic kidney disease, stage 3 (moderate); N17.9 Acute kidney failure, unspecified; I13.0 Hypertensive heart and chronic kidney disease with heart failure and stage 1 through stage 4 chronic kidney disease, or unspecified chronic kidney disease; I50.22 Chronic systolic (congestive) heart failure; F29 Unspecified psychosis not due to a substance or known physiological condition; Z95.0 Presence of cardiac pacemaker; I25.10 Atherosclerotic heart disease of native coronary artery without angina pectoris; Z91.19 Patient's noncompliance with other medical treatment and regimen; D63.8 Anemia in other chronic diseases classified elsewhere; D69.2 Other nonthrombocytopenic purpura; L60.0 Ingrowing nail; E86.1 Hypovolemia; Z95.1 Presence of aortocoronary bypass graft
CPT/HCPCS: 36415; 70450-TC; 71111-TC; 80048-TC; 80053-TC; 81000-TC; 82272-TC; 82570-TC; 83540-TC; 84155-TC; 84300-TC; 84443-TC; 85025-TC; 87081-TC; A6402; J3490; Q0163